=== PATIENT | male | born 1950 | race Caucasian/White ===

== ENCOUNTER 2019-01-20 18:06 | Emergency (ER) | payer MEDICARE, BC ==
[2019-01-20] MEDS ORDERED: Ondansetron PF 4 MG/2 ML Vial ONE (18:17)
[2019-01-20 18:33] LABS: #Basophils 0.1 thou/uL (0.0-0.2); #Lymphocytes 1.8 thou/uL (1.20-3.40); #Monocytes 0.4 thou/uL (0.11-0.59); #Neutrophils 5.8 thou/uL (1.40-6.50); %Basophils 0.7 % (0.0-1.0); %Eosinophils 0.3 % (0.0-10.0); %Lymphocytes 22.4 % (21.0-51.0); %Monocytes 4.4 % (0.0-10.0); %Neutrophils 72.1 % (42.0-75.0); Hemoglobin 14.9 g/dL (14.0-18.0); Mean Corpuscular HGB CONC 33.7 g/dL (32.0-36.0); Mean Corpuscular Hemoglobin 29.7 pg (27.0-31.0); Mean Platelet Volume 7.4 fL (7.4-10.4); Platelet Count 234 thou/uL (130-400); RBC Distribution Width 11.1 % (11.5-14.5); Red Blood Cell (RBC) Count 5.04 mill/uL (4.70-6.10); White Blood Cell (WBC) Count 8.1 thou/uL (4.8-10.8)
[2019-01-20 18:50] LABS: ALT (SGPT) 14 U/L (8-55); AST (SGOT) 24 U/L (5-34); Albumin 4.5 g/dL (3.4-4.8); Alkaline Phosphatase 58 U/L (40-150); Anion Gap 19 mmol/L (10-20); BUN (Urea Nitrogen) 12 mg/dL (8.4-25.7); Bilirubin, Total 0.7 mg/dL (0.2-1.2); CK (CPK) 137 U/L (30-200); Calc. Creatinine Clearance 0 mL/min (70-130); Calcium 10.2 mg/dL (7.8-10.44); Carbon Dioxide 21 mmol/L (23-31); Chloride 101 mmol/L (98-107); Estimated GFR-MDRD 60; Globulin 2.9 g/dL (2.4-3.5); Glucose 169 mg/dL (80-115); Lipase 37 U/L (8-78); Potassium 3.6 mmol/L (3.5-5.1); Protein, Total 7.4 g/dL (5.8-8.1); Sodium 137 mmol/L (136-145)
[2019-01-20] MEDS ORDERED: Metoclopramide HCl 10 MG/2 ML VIAL ONE (19:17)
--- NOTE | 2019-01-20 20:29 | CT ---
CT ABDOMEN AND PELVIS WITH IV CONTRAST: Indication: Nausea, vomiting, and diarrhea for several weeks. Comparison: None. FINDINGS: ABDOMEN: Lung bases are clear. There are numerous hypodensities involving the liver consistent with small cysts. One of the largest measures 1.9 cm in segment six, one of the largest in the left hepatic lobe measures 1.4 cm. There ar e bilateral renal cysts. The largest is seen at the inferior pole measuring 4.5 cm. No hydronephrosis is evident. The adrenal glands, pancreas, and spleen appear within normal limits. There are scattered vascular calcifications within the upper abdomen and involving the abdominal and pelvic vasculature. PELVIS: The bladder, rectum, and perirectal soft tissues are normal appearing. There are a few scattered [employer] diverticula without evidence of active diverticulitis. The colon is largely decompressed. There i s a normal appendix in the right lower quadrant. The small bowel is normal appearing. No definite free fluid or enlarged lymph nodes are evident. Osseous structures: No definite acute osseous abnormality is evident. There is scattered degenerative and osteoarthritic change. There is degenerative levoscoliosis of the lumbar spine. IMPRESSION: 1. Hepatic and renal cysts. 2. Diverticulosis without evidence of active diverticulitis. 3. Other chronic findings as above. POS: BH
[2019-01-20 20:45] LABS: Bilirubin Negative (Negative); Blood, Urine Trace (Negative); Clarity Hazy (Clear); Glucose, Urine (Dipstick) Negative (Negative); Leukocyte Negative (Negative); Nitrite Negative (Negative); Protein, Urine (Dipstick) Negative (Neg-Trace); Specific Gravity, Urine 1.015 (1.005-1.030); Urobilinogen 0.2 mg/dL (0.2-1.0)
[2019-01-20 20:50] LABS: RBC/HPF 0-3 HPF (0-3); Squamous Epithelial None Seen HPF (0-3); WBC/HPF None Seen HPF (0-3)
[2019-01-20 20:51] LABS: Bacteria/HPF Rare-Few HPF (None Seen)
== END 2019-01-20 21:01 | disposition home or self-care (01) ==
LOC: SCSER 18:06
DX: R11.2 Nausea with vomiting, unspecified (principal); I10 Essential (primary) hypertension; Z79.899 Other long term (current) drug therapy
CPT/HCPCS: 74177; 80053; 81003; 81015; 82550; 83605; 83690; 84484; 85025; 93005; 96361; 96374; 96375; J2405; J2765